=== PATIENT | female | born 1995 | race Two or more races ===

== ENCOUNTER 2023-10-15 15:10 | Outpatient (CLI) | payer OTHER | END 2023-10-15 15:14 | disposition home or self-care (01) | LOC: PRENATAL 15:10 | PROVIDERS: ATTEND Obstetrics & Gynecology Maternal & Fetal Medicine | DX: O36.80X0 Pregnancy with inconclusive fetal viability, not applicable or unspecified (principal); Z36.82 Encounter for antenatal screening for nuchal translucency; Z3A.13 13 weeks gestation of pregnancy ==

== ENCOUNTER 2023-11-30 10:02 | Outpatient (CLI) | payer OTHER | END 2023-11-30 10:03 | disposition home or self-care (01) | LOC: PRENATAL 10:02 | PROVIDERS: ATTEND Obstetrics & Gynecology Maternal & Fetal Medicine | DX: O35.9XX0 Maternal care for (suspected) fetal abnormality and damage, unspecified, not applicable or unspecified (principal); O35.3XX0 Maternal care for (suspected) damage to fetus from viral disease in mother, not applicable or unspecified; O44.02 Complete placenta previa NOS or without hemorrhage, second trimester; Z3A.20 20 weeks gestation of pregnancy ==

== ENCOUNTER 2024-02-22 01:05 | Outpatient (CLI) | payer OTHER ==
[2024-02-22 00:47] VITALS: BP 103/68
[2024-02-22] MEDS ORDERED: PRENATAL TABLE1 EAC1 PO (01:57)
[2024-02-22] MEDS ORDERED: ACETAMINOPHEN 500 MG GEL..CAP PO PRN (02:15)
[2024-02-22 02:58] VITALS: BP 112/70
[2024-02-22 06:12] VITALS: BP 96/60; O2SAT 99
[2024-02-22 11:26] VITALS: BP 107/70
== END 2024-02-22 13:14 | disposition left against medical advice (07) ==
LOC: OBS/DEL 01:05
PROVIDERS: ATTEND General Practice
DX: O26.893 Other specified pregnancy related conditions, third trimester (principal); O26.849 Uterine size-date discrepancy, unspecified trimester; O36.8199 Decreased fetal movements, unspecified trimester, other fetus; M54.50 Low back pain, unspecified; S30.0XXA Contusion of lower back and pelvis, initial encounter; W19.XXXA Unspecified fall, initial encounter; Z3A.33 33 weeks gestation of pregnancy

== ENCOUNTER 2024-03-25 16:56 | Outpatient (CLI) | payer OTHER ==
[~2024-03-25] VITALS: Ht 154.9 cm; Wt 79.8 kg
[2024-03-25 16:44] VITALS: BP 109/71
[~2024-03-25 16:56] MED LIST: PRENATAL TABLE1 EAC1 PO
[2024-03-25] MEDS ORDERED: RINGERS SOLUTION,LACTATED 1,000 ML IV SCH (17:45)
[2024-03-25] MEDS ORDERED: BETAMETHASONE ACETATE,SOD PHOS 30 MG/5 ML ML IM NR (17:45)
[2024-03-25 18:35] LABS: HEMATOCRIT 34.6 % (36.0-45.00); HEMOGLOBIN 11.3 g/dL (12.0-15.00); MEAN CORPUSCULAR HEMOGLOBIN 30.1 pg (27.00-32.0); MEAN CORPUSCULAR HGB CONC 32.7 g/dl (32.0-36.0); PLATELET COUNT 297 K/uL (150-450); RED BLOOD COUNT 3.76 M/uL (4.00-6.00)
[2024-03-25 19:09] LABS: INR 0.96; PARTIAL THROMBOPLASTIN TIME 24.7 SECONDS (22.0-34.0); PROTHROMBIN TIME 10.5 SECONDS (9.0-11.5)
[2024-03-25 19:21] LABS: ALBUMIN 2.7 gm/dL (3.4-5.0); BILIRUBIN TOTAL 0.35 mg/dL (0.3-1.2); CALCIUM 8.8 mg/dL (8.5-10.1); CREATININE SERUM 0.57 mg/dL (0.55-1.02); GFR 124.54; GLOBULINA 3.8 G/DL (2.4-3.5); POTASSIUM 4.17 mEq/L (3.5-5.1); TOTAL PROTEIN 6.5 gm/dL (6.4-8.2)
[2024-03-25 19:36] VITALS: BP 101/62
[2024-03-25 20:24] LABS: URINE APPEARANCE Clear; URINE BILIRRUBIN Negative (NEGATIVE); URINE BLOOD Negative; URINE COLOR Yellow; URINE GLUCOSE Negative (NEGATIVE); URINE KETONE 15 (NEGATIVE); URINE LEUKOCYTE Negative; URINE NITRATE Negative; URINE PROTEIN Negative (NEGATIVE)
[2024-03-25 20:25] LABS: URINE BACTERIA 68.4 uL (0.0-1933); URINE EPITHELIAL CELLS 5.5 uL (0.0-38.8); URINE WBC 2.3 uL (0.0-23.2)
[2024-03-25 20:40] LABS: URINE RBC 1.9 uL (0.0-20.8)
[2024-03-25 22:41] VITALS: BP 101/62; BP 109/71
[2024-03-25 23:13] VITALS: BP 106/67
[2024-03-26 03:26] VITALS: BP 115/60
[2024-03-26 08:00] VITALS: BP 112/71
[2024-03-26 13:12] VITALS: BP 110/72
[2024-03-26 15:40] VITALS: BP 104/54
[2024-03-27 06:04] LABS: hav igm Negative (Negative); hcv Non Reactive (Non Reactive); hep b c Negative (Negative); hep b s ag Negative (Negative)
== END 2024-03-26 15:42 | disposition home or self-care (01) ==
LOC: OBS/DEL 16:56 → LDR 23:24 → OBS/DEL 03-26 15:42
PROVIDERS: Obstetrics & Gynecology; ATTEND General Practice
DX: O26.893 Other specified pregnancy related conditions, third trimester (principal); O26.849 Uterine size-date discrepancy, unspecified trimester; O36.8199 Decreased fetal movements, unspecified trimester, other fetus; O13.9 Gestational [pregnancy-induced] hypertension without significant proteinuria, unspecified trimester; Z3A.37 37 weeks gestation of pregnancy

== ENCOUNTER → 2024-03-31 09:55 | Outpatient (CLI) | payer OTHER | END | disposition home or self-care (01) | LOC: PRENATAL 09:55 | PROVIDERS: ATTEND Obstetrics & Gynecology Maternal & Fetal Medicine | DX: O36.8199 Decreased fetal movements, unspecified trimester, other fetus (principal); Z3A.37 37 weeks gestation of pregnancy ==

== ENCOUNTER 2024-03-31 19:21 | Inpatient (IN) | payer OTHER ==
[~2024-03-31] VITALS: Ht 154.9 cm; Wt 77.1 kg
[2024-03-31 18:40] VITALS: BP 121/71
[2024-03-31] MEDS ORDERED: RINGERS SOLUTION,LACTATED 1,000 ML IV SCH (19:30)
[2024-03-31] MEDS ORDERED: OXYTOCIN 1,000 ML IV ONE (19:30)
[2024-03-31 20:24] LABS: HEMATOCRIT 35.5 % (36.0-45.00); HEMOGLOBIN 11.7 g/dL (12.0-15.00); MEAN CELL VOLUME 92.1 fL (80.00-100.00); MEAN CORPUSCULAR HEMOGLOBIN 30.2 pg (27.00-32.0); MEAN CORPUSCULAR HGB CONC 32.8 g/dl (32.0-36.0); PLATELET COUNT 331 K/uL (150-450); RED BLOOD COUNT 3.86 M/uL (4.00-6.00)
[2024-03-31 20:55] LABS: ALBUMIN 3.1 gm/dL (3.4-5.0); BILIRUBIN TOTAL 0.44 mg/dL (0.3-1.2); CALCIUM 9.2 mg/dL (8.5-10.1); CREATININE SERUM 0.5 mg/dL (0.55-1.02); GFR 144.87; GLOBULINA 4.1 G/DL (2.4-3.5); POTASSIUM 4.61 mEq/L (3.5-5.1); TOTAL PROTEIN 7.2 gm/dL (6.4-8.2)
[2024-03-31 23:39] VITALS: BP 99/50
[2024-04-01] VITALS (7 sets, daily range): BP systolic 99–112; BP diastolic 40–73
[2024-04-01] MEDS ORDERED: IBUprofen 400 MG TABLET PO SCH (00:06)
[2024-04-01] MEDS ORDERED: CHLORHEXIDINE GLUCONATE 120 ML BOTTLE TOP SCH (00:15)
[2024-04-01] MEDS ORDERED: OXYTOCIN 1,000 ML IV SCH (00:15)
[2024-04-01 09:58] LABS: HEMATOCRIT 33.8 % (36.0-45.00); HEMOGLOBIN 11.2 g/dL (12.0-15.00); MEAN CELL VOLUME 92.2 fL (80.00-100.00); MEAN CORPUSCULAR HEMOGLOBIN 30.6 pg (27.00-32.0); MEAN CORPUSCULAR HGB CONC 33.2 g/dl (32.0-36.0); PLATELET COUNT 275 K/uL (150-450); RED BLOOD COUNT 3.66 M/uL (4.00-6.00)
[2024-04-01] MEDS ORDERED: IBUprofen 800 MG TABLET PO SCH (13:00)
[2024-04-02 01:21] VITALS: BP 91/58
[2024-04-02 08:28] VITALS: BP 120/80
== END 2024-04-02 13:14 | disposition home or self-care (01) | DRG 807 ==
LOC: OB/GYN 19:21 → LDR 19:21 → OB/GYN 04-01 01:44
PROVIDERS: Obstetrics & Gynecology; ADMIT General Practice; ATTEND General Practice
PROC: 10E0XZZ Delivery of Products of Conception, External Approach (ICD-10-PCS; principal; 2024-03-31)
PROC: 4A1HXCZ Monitoring of Products of Conception, Cardiac Rate, External Approach (ICD-10-PCS; 2024-03-31)
DX: O41.03X0 Oligohydramnios, third trimester, not applicable or unspecified (principal); Z37.0 Single live birth; Z3A.37 37 weeks gestation of pregnancy; Z20.822 Contact with and (suspected) exposure to COVID-19